=== PATIENT | female | born 1955 | race African-American/Black ===

== ENCOUNTER → 2016-09-11 | Outpatient (CLI) | payer OTHER ==
[~2016-09-11] MED LIST: ASPIR 8181 MG PO; BENICAR40 MG PO; DIABETA 5MG TABL5 MG PO; GLYBURIDE 5 MG T5 M1 PO; HYDRALAZINE 5050 MG PO; KLOR-CON 1010 MEQ PO; LASIX 40 MG TAB40 M2 PO; LIORESAL 10 MG10 MG PO; LOPRESSOR100 M1 PO; METFORMIN HCL500 MG PO; MS CONTIN 30 MG30 M1 PO; NEURONTIN 300300 M1 PO; TIZANIDINE HCL 22 M1 PO; TRILEPTAL150 MG PO; VALIUM5 MG PO; ZOCOR80 MG PO
== END ==
LOC: RAD 04:27
DX: R92.1 Mammographic calcification found on diagnostic imaging of breast (principal)

== ENCOUNTER → 2017-09-12 | Outpatient (CLI) | payer OTHER | LOC: BC 08:13 | DX: Z12.31 Encounter for screening mammogram for malignant neoplasm of breast (principal) ==

== ENCOUNTER → 2018-09-19 | Outpatient (CLI) | payer OTHER | LOC: RAD 01:37 | DX: Z12.31 Encounter for screening mammogram for malignant neoplasm of breast (principal) ==

== ENCOUNTER → 2019-10-24 | Outpatient (CLI) | payer OTHER | LOC: BC 11:18 | PROVIDERS: ATTEND Specialist | DX: Z12.31 Encounter for screening mammogram for malignant neoplasm of breast (principal); N63.32 Unspecified lump in axillary tail of the left breast; N63.31 Unspecified lump in axillary tail of the right breast ==

== ENCOUNTER → 2020-11-09 | Outpatient (CLI) | payer OTHER | LOC: BC 07:26 | PROVIDERS: ATTEND Internal Medicine | DX: Z12.31 Encounter for screening mammogram for malignant neoplasm of breast (principal) ==